=== PATIENT | female | born 1960 | race Caucasian/White ===

== ENCOUNTER 2016-08-19 05:19 | Inpatient (IN) | payer MEDICARE, OTHER ==
[~2016-08-19] VITALS: Ht 157.5 cm; Wt 42.6 kg
[2016-08-19] MEDS ORDERED: LACTATED RINGERS 1,000 ML IV SCH (06:27)
[2016-08-19 06:28] VITALS: BP 151/88
[2016-08-19] MEDS ORDERED: TIZA4CAP PO (06:38)
[2016-08-19] MEDS ORDERED: POTA10CA PO (06:38)
[2016-08-19] MEDS ORDERED: TELM1TAB PO (06:38)
[2016-08-19] MEDS ORDERED: OXYC10TA6 PO (06:38)
[2016-08-19] MEDS ORDERED: FENT1PAT77 TP (06:38)
[2016-08-19] MEDS ORDERED: SODIUM PO (06:38)
[2016-08-19] MEDS ORDERED: BUPIVACAINE/PF-EPI 0.5% 1:200K ONE (06:50)
[2016-08-19] MEDS ORDERED: NEOSPORIN OINT, 15GM ONE (06:50)
[2016-08-19 07:19] LABS: ASPARTATE AMINO TRANSFERASE 23 U/L (15-37); BLOOD UREA NITROGEN 10 mg/dL (7-18)
[2016-08-19] MEDS ORDERED: HYDROmorphone 1 MG/ML, 1ML ONE ×2 (07:19→08:55)
[2016-08-19] MEDS ORDERED: MIDAZOLAM 1 MG/ML, 2ML ONE (07:19)
[2016-08-19] MEDS ORDERED: FENTANYL PF 250 MCG/5ML ONE (07:20)
[2016-08-19] MEDS ORDERED: ONDANSETRON 2MG/ML, 2ML IVPush PRN ×2 (07:30→08:00)
[2016-08-19] MEDS ORDERED: LABETALOL 5MG/ML, 20ML IV PRN (07:30)
[2016-08-19] MEDS ORDERED: ALBUTEROL SULFATE 2.5 MG/3 ML NPPB PRN (07:30)
[2016-08-19] MEDS ORDERED: OXYcodone 5 MG/5 ML ORAL.SOL UDC PO PRN (07:30)
[2016-08-19] MEDS ORDERED: METOPROLOL 1 MG/ML, 5ML IV PRN (07:30)
[2016-08-19] MEDS ORDERED: ACETAMINOPHEN 325 MG TABLET PO PRN (07:30)
[2016-08-19] MEDS ORDERED: MIDAZOLAM 1 MG/ML, 2ML IV PRN (07:30)
[2016-08-19] MEDS ORDERED: hydrALAzine 20 MG/ML, 1ML IV PRN (07:30)
[2016-08-19] MEDS ORDERED: EPHEDRINE 50 MG/ML, 1ML IVPush PRN (07:30)
[2016-08-19] MEDS ORDERED: NEOSTIGMINE 1 MG/ML, 10ML ONE (07:36)
[2016-08-19] MEDS ORDERED: PROPOFOL 10 MG/ML, 20ML ONE (07:36)
[2016-08-19] MEDS ORDERED: ONDANSETRON 2MG/ML, 2ML ONE (07:36)
[2016-08-19] MEDS ORDERED: ROCURONIUM 10 MG/ML ONE (07:36)
[2016-08-19] MEDS ORDERED: CEFAZOLIN 1,000 MG ONE (07:36)
[2016-08-19] MEDS ORDERED: GLYCOPYRROLATE 0.2MG/1ML ONE (07:36)
[2016-08-19] MEDS ORDERED: DEXAMETHASONE 4 MG/ML, 1ML ONE (07:36)
[2016-08-19] MEDS ORDERED: FENTANYL 75 MCG PATCH TD PRN (08:00)
[2016-08-19] MEDS ORDERED: PROMETHAZINE 25 MG/ML, 1ML IM PRN (08:00)
[2016-08-19] MEDS ORDERED: FENTANYL PF 100 MCG/2ML ONE (08:55)
[2016-08-19] MEDS ORDERED: OXYcodone 5 MG/5 ML ORAL.SOL UDC ONE (08:56)
[2016-08-19] MEDS ORDERED: ACETAMINOPHEN 650 MG/20.3 ML UDC ONE (08:56)
[2016-08-19] MEDS: FENTANYL PF 100 MCG/2ML IV PRN ×2 (09:00→09:10)
[2016-08-19] MEDS ORDERED: TELMISARTAN PO SCH (09:00)
[2016-08-19] MEDS ORDERED: HYDROCHLOROTHIAZID PO SCH (09:00)
[2016-08-19] MEDS: HYDROmorphone 1 MG/ML, 1ML IV PRN ×4 (09:05→09:50)
[2016-08-19] MEDS ORDERED: FENTANYL 75 MCG PATCH TD SCH (10:23)
[2016-08-19] MEDS ORDERED: FENTANYL 75 MCG PATCH TD ONE (10:23)
[2016-08-19] MEDS: TIZANIDINE HCL 4 MG PO SCH ×3 (10:59→21:00)
[2016-08-19] MEDS: morphine SULFATE 10 MG/ML, 1ML IVPush PRN ×6 (11:36→20:32)
[2016-08-19] MEDS: OXYcodone IR 5MG TABLET PO PRN ×3 (14:18→22:39)
[2016-08-19 14:20] VITALS: BP 122/87
[2016-08-19] MEDS ORDERED: CEFAZOLIN 1,000 MG IM SCH (15:30)
[2016-08-19] MEDS: CEFAZOLIN PMX 1GM/50ML 50 ML IV SCH ×2 (15:57→22:48)
[2016-08-19 18:39] VITALS: BP 148/78
[2016-08-20 01:56] VITALS: BP 123/79
[2016-08-20] MEDS: morphine SULFATE 10 MG/ML, 1ML IVPush PRN ×3 (02:11→08:02)
[2016-08-20] MEDS: OXYcodone IR 5MG TABLET PO PRN ×2 (02:38→06:38)
[2016-08-20 07:25] VITALS: BP 112/74
[2016-08-20] MEDS ORDERED: PNEUMOCOCCAL 23 VACCINE IM-VACC ONE (07:30)
== END 2016-08-20 08:45 | disposition home or self-care (01) | DRG 459 ==
LOC: ORIP 05:19 → 4NOR 10:08
PROVIDERS: ADMIT Orthopaedic Surgery Orthopaedic Surgery of the Spine; ATTEND Orthopaedic Surgery Orthopaedic Surgery of the Spine
PROC: 0SG704Z Fusion of Right Sacroiliac Joint with Internal Fixation Device, Open Approach (ICD-10-PCS; principal; 2016-08-19 07:30)
DX: M47.898 Other spondylosis, sacral and sacrococcygeal region (principal); E43 Unspecified severe protein-calorie malnutrition; Z68.1 Body mass index [BMI] 19.9 or less, adult; M19.90 Unspecified osteoarthritis, unspecified site
CPT/HCPCS: 36415; 72202; 76000; 80053; 90732; J0690; J1100; J1170; J2250; J2405; J2704; J2710; J3010; J3490; C1762; C1776; J2270; J7120